=== PATIENT | male | born 1985 ===

== ENCOUNTER 2023-10-24 19:20 | Emergency (ER) | payer OTHER ==
[2023-10-24] MEDS: Lidocaine 1% 5 ML VIAL INJECT ONE (20:34)
== END 2023-10-24 21:10 | disposition home or self-care (01) ==
LOC: MW.ED 19:20
DX: S61.211A Laceration without foreign body of left index finger without damage to nail, initial encounter (principal); Z88.1 Allergy status to other antibiotic agents; W31.2XXA Contact with powered woodworking and forming machines, initial encounter
CPT/HCPCS: 12001; 99282; 99283; J3490